=== PATIENT | male | born 1995 | race African-American/Black ===

== ENCOUNTER 2024-09-03 12:00 | Emergency (ER) | payer BC ==
[~2024-09-03] VITALS: Ht 170.2 cm; Wt 93.0 kg
[2024-09-03 12:20] VITALS: BP 129/76; TEMP 98.8
[2024-09-03] MEDS ORDERED: AMOXICILLIN TRIHYDRATE 250 MG CAPSULE ONE (12:32)
[2024-09-03] MEDS ORDERED: AMOX500C2 PO (12:34)
[2024-09-03] MEDS: AMOXICILLIN TRIHYDRATE 500 MG CAPSULE PO ONE (12:34)
[2024-09-03 12:40] VITALS: O2SAT 98
== END 2024-09-03 12:41 | disposition home or self-care (01) ==
LOC: ER 12:22
DX: J03.90 Acute tonsillitis, unspecified (principal)
CPT/HCPCS: 99283; J8540 ×2